=== PATIENT | female | born 1940 | race Caucasian/White ===

== ENCOUNTER → 2016-11-19 | Outpatient (CLI) | payer OTHER | LOC: BMCIMAGING 08:23 | PROVIDERS: ATTEND Nurse Practitioner Adult Health | DX: Z12.31 Encounter for screening mammogram for malignant neoplasm of breast (principal) | CPT/HCPCS: G0202 ==

== ENCOUNTER → 2017-05-30 | Outpatient (CLI) | payer OTHER | LOC: BMCIMAGING 14:24 | PROVIDERS: ATTEND Physician Assistant Medical | DX: Z13.820 Encounter for screening for osteoporosis (principal); M81.0 Age-related osteoporosis without current pathological fracture ==

== ENCOUNTER → 2017-12-16 | Outpatient (CLI) | payer OTHER | LOC: BMCIMAGING 13:30 | PROVIDERS: ATTEND Family Medicine Geriatric Medicine | DX: Z12.31 Encounter for screening mammogram for malignant neoplasm of breast (principal) ==

== ENCOUNTER → 2018-05-06 | Outpatient (CLI) | payer OTHER | LOC: FIMAGING 15:02 | PROVIDERS: ATTEND Family Medicine Geriatric Medicine | DX: G30.9 Alzheimer's disease, unspecified (principal); F02.80 Dementia in other diseases classified elsewhere, unspecified severity, without behavioral disturbance, psychotic disturbance, mood disturbance, and anxiety; G31.9 Degenerative disease of nervous system, unspecified; M47.812 Spondylosis without myelopathy or radiculopathy, cervical region ==